=== PATIENT | female | born 1995 | race Hispanic/Latino ===

== ENCOUNTER 2018-04-04 05:07 | Inpatient (IN) | payer MEDICAID ==
[~2018-04-04] VITALS: Ht 154.9 cm; Wt 75.3 kg
[~2018-04-04 05:07] MED LIST: PNV91TAB3 PO
[2018-04-04] MEDS ORDERED: LACTATED RINGERS 1000ML 1,000 ML IV SCH (05:15)
[2018-04-04] MEDS ORDERED: PREN-196 PO (05:26)
[2018-04-04 05:42] LABS: APPEARANCE,URINE Clear (CLEAR); BILIRUBIN,URINE Negative (NEGATIVE); COLOR,URINE Yellow (YELLOW); GLUCOSE, URINE (UA) Negative (NEGATIVE); KETONES,URINE Negative (NEGATIVE); LEUKOCYTE ESTERASE ,URINE Negative (NEGATIVE); NITRATE,URINE Negative (NEGATIVE); OCCULT BLOOD,URINE Negative (NEGATIVE); PROTEIN,URINE Negative (NEGATIVE); UROBILINOGEN,URINE 0.2 mg/dL (0.2-1.0)
[2018-04-04] MEDS ORDERED: LACTATED RINGERS 1000ML 1,000 ML IV PRN ×2 (05:46→06:06)
[2018-04-04 05:50] VITALS: BP 123/67
[2018-04-04 06:02] LABS: HEMATOCRIT 30.9 % (36-48); MEAN CORPUSCULAR HGB CONC 32.1 g/dL (32.0-36.0); MEAN CORPUSCULAR VOLUME 71.8 fL (80-100); NUCLEATED RED BLOOD CELLS 0.1 % (0.0-0.19); PLATELET COUNT (AUTO) 224 K/uL (130-400); RED BLOOD CELL COUNT(AUTO) 4.31 MIL/uL (4.00-5.50); RED CELL DISTRIBUTION WIDTH 17.1 % (11.0-15.5); WHITE BLOOD COUNT (AUTO) 15.3 K/uL (4.8-10.8)
[2018-04-04] MEDS ORDERED: OXYTOCIN 10 USP UNITS/ML ONE ×2 (08:11→13:58)
[2018-04-04] MEDS ORDERED: LACTATED RINGERS 1000ML 1,000 ML IV ONE (08:11)
[2018-04-04] MEDS ORDERED: OXYTOCIN 10 USP UNITS/ML 20 UNIT in LACTATED RINGERS 1000ML 1,000 ML IV SCH ×4 (08:15)
[2018-04-04] MEDS ORDERED: PROMETHAZINE HCL 25 MG/ML 1ML AMPULE IM PRN (08:15)
[2018-04-04] MEDS ORDERED: MEPERIDINE-PF 50 MG/ML SYG IVP PRN (08:15)
[2018-04-04] MEDS ORDERED: NALOXONE HCL 0.4 MG/1 ML ML ONE (09:55)
[2018-04-04] MEDS ORDERED: LIDOCAINE HCL 1% 20 ML VIAL ONE (09:56)
[2018-04-04] MEDS ORDERED: BENZOCAINE/LANOLIN/ALOE VERA 60 ML AEROSOL TP PRN (10:30)
[2018-04-04] MEDS ORDERED: OXYTOCIN-LR 20 UNITS/1000 ML 1,000 ML IV SCH (10:30)
[2018-04-04] MEDS ORDERED: LANOLIN 30GM OINTMENT TP PRN (10:30)
[2018-04-04] MEDS ORDERED: WITCH HAZEL 1 PAD TP PRN (10:30)
[2018-04-04] MEDS ORDERED: DIPH,PERTUSS(ACELL),TET VAC/PF 0.5 ML VIAL IM PRN (10:30)
[2018-04-04] MEDS ORDERED: MEASLES/MUMPS/RUBELLA VACCINE, LIVE 0.5 ML/VIAL SQ PRN (10:30)
[2018-04-04 11:41] VITALS: BP 126/70
[2018-04-04] MEDS: IBUPROFEN 600 MG TABLET PO PRN ×2 (12:04→18:27)
[2018-04-04 16:06] VITALS: BP 114/58
[2018-04-04 20:01] VITALS: BP 121/57
[2018-04-04] MEDS: DOCUSATE SODIUM 100 MG CAP PO SCH (21:02)
[2018-04-05 00:02] VITALS: BP 121/87
[2018-04-05 04:02] VITALS: BP 140/78
[2018-04-05 06:16] LABS: HEPATITIS Bs ANTIGEN SCREEN P Negative (Negative)
[2018-04-05 07:40] VITALS: BP 124/75
[2018-04-05] MEDS: DOCUSATE SODIUM 100 MG CAP PO SCH (08:40)
[2018-04-05] MEDS: IBUPROFEN 600 MG TABLET PO PRN (08:41)
[2018-04-05 11:36] VITALS: BP 122/68
== END 2018-04-05 14:15 | disposition home or self-care (01) | DRG 560 ==
LOC: EDH 05:07 → OBSVTOIN 05:08 → LDH 05:08 → WSH 11:40
PROVIDERS: ADMIT Specialist; ATTEND Specialist
PROC: 10E0XZZ Delivery of Products of Conception, External Approach (ICD-10-PCS; principal; 2018-04-04)
PROC: 3E0234Z Introduction of Serum, Toxoid and Vaccine into Muscle, Percutaneous Approach (ICD-10-PCS; 2018-04-04)
PROC: 3E0134Z Introduction of Serum, Toxoid and Vaccine into Subcutaneous Tissue, Percutaneous Approach (ICD-10-PCS; 2018-04-04)
DX: O69.81X0 Labor and delivery complicated by cord around neck, without compression, not applicable or unspecified (principal); Z23 Encounter for immunization; Z37.0 Single live birth; Z3A.39 39 weeks gestation of pregnancy
CPT/HCPCS: 36415; 81003; 85027; 86592; 86850; 86900; 86901; 87340; 90715; J2175; J2310; J2550; J2590; J7120

== ENCOUNTER 2018-09-16 20:07 | Emergency (ER) | payer MEDICAID, OTHER ==
[~2018-09-16 20:07] MED LIST changes: -PNV91TAB3 PO; +PREN-196 PO
[2018-09-16 20:49] LABS: HCG,QUAL RESULT NEGATIVE (NEGATIVE)
[2018-09-16 20:54] LABS: AMPHET/METH SCREEN,URINE NEGATIVE (NEGATIVE); BARBITURATE SCREEN, URINE NEGATIVE (NEGATIVE); BENZODIAZEPINES SCREEN,URINE NEGATIVE (NEGATIVE); CANNABINOID SCREEN,URINE NEGATIVE (NEGATIVE); COCAINE SCREEN,URINE NEGATIVE (NEGATIVE); OPIATE SCREEN,URINE NEGATIVE (NEGATIVE); PHENCYCLIDINE SCREEN,URINE NEGATIVE (NEGATIVE)
[2018-09-16 21:19] LABS: BASOPHILS % (AUTO) 0.6 % (0.0-5.0); EOSINOPHILS % (AUTO) 1.5 % (0.0-8.0); HEMATOCRIT 38.4 % (36-48); LYMPHOCYTES % (AUTO) 13.9 % (21.0-51.0); MEAN CORPUSCULAR HEMOGLOBIN 26.8 pg (27.0-33.0); MEAN CORPUSCULAR HGB CONC 33.1 g/dL (32.0-36.0); MEAN CORPUSCULAR VOLUME 81.2 fL (79-99); MONOCYTES % (AUTO) 7.4 % (3.0-13.0); NEUTROPHILS % (AUTO) 76.6 % (40.0-77.0); PLATELET COUNT (AUTO) 265 K/uL (130-400); RED BLOOD CELL COUNT(AUTO) 4.72 MIL/uL (4.00-5.50); RED CELL DISTRIBUTION WIDTH 14.5 % (11.0-15.5); WHITE BLOOD COUNT (AUTO) 14.2 K/uL (4.8-10.8)
[2018-09-16 21:29] LABS: CREATININE 0.6 mg/dL (0.5-1.5); POTASSIUM 3.5 mmol/L (3.5-5.1)
[2018-09-16 21:34] LABS: ALBUMIN 4.5 g/dL (3.5-5.0); BILIRUBIN,TOTAL 0.2 mg/dL (0.2-1.0); TOTAL PROTEIN, SERUM 8.5 g/dL (6.0-8.3)
== END 2018-09-16 23:51 | disposition home or self-care (01) ==
LOC: EDH 20:07
DX: R07.89 Other chest pain (principal); M79.605 Pain in left leg; M79.604 Pain in right leg
CPT/HCPCS: 36415; 71045; 80053; 80305; 81025; 82550; 84484; 85025; 85378; 93005; 94761